=== PATIENT | male | born 1965 | race Caucasian/White ===

== ENCOUNTER 2016-11-28 18:03 | Inpatient (IN) | payer MEDICARE, OTHER ==
[~2016-11-28] VITALS: Ht 129.5 cm; Wt 38.1 kg
[2016-11-28 20:30] LABS: HEMOGLOBIN 8.3 gm/dl (14.0-17.5); RED BLOOD COUNT 2.87 M/UL (4.20-5.50); WHITE BLOOD COUNT 4.5 K/UL (4.5-11.0)
[2016-11-28 20:41] LABS: BUN/CREATININE RATIO 30 (0-10)
[2016-11-29] MEDS ORDERED: LOVASTATIN20 MG PO (05:58)
[2016-11-29] MEDS ORDERED: METOPROLOL TART25 MG PO (05:59)
[2016-11-29] MEDS ORDERED: MIRALAX17 GM PO (06:00)
[2016-11-29] MEDS ORDERED: MYCOSTATIN POWD15 GM TOP (06:06)
[2016-11-29] MEDS ORDERED: [UNRECOGNIZED DRUG - OTHER] TOP (06:06)
[2016-11-29] MEDS ORDERED: PHENERGAN25 MG PR (06:08)
[2016-11-29] MEDS ORDERED: RANITIDINE HCL150 MG PO (06:09)
[2016-11-29] MEDS ORDERED: SERTRALINE HCL25 MG PO (06:09)
[2016-11-29] MEDS ORDERED: FLOMAX 0.4 MG0.4 MG PO (06:09)
[2016-11-29] MEDS ORDERED: VITAMIN C 500500 MG PO (06:10)
[2016-11-29] MEDS ORDERED: BUSPAR 5MG TABLE5 MG PO (06:10)
[2016-11-29] MEDS ORDERED: CALCIUM 600 +1 EACH PO (06:11)
[2016-11-29] MEDS ORDERED: CALMOSEPTINE OI71 GM TOP (06:12)
[2016-11-29] MEDS ORDERED: CHLORHEXIDINE FL1 ML PO (06:13)
[2016-11-29] MEDS ORDERED: CLINDAGEL75 ML TOP (06:16)
[2016-11-29] MEDS ORDERED: CRANBERRY425 MG PO (06:16)
[2016-11-29] MEDS ORDERED: ENSURE LIQUID237 ML PO (06:18)
[2016-11-29] MEDS ORDERED: FINASTERIDE5 MG PO (06:19)
[2016-11-29] MEDS ORDERED: FEROSUL300 MG/6.8 PO (06:19)
[2016-11-29] MEDS ORDERED: NASALIDE INH SO25 ML (06:20)
[2016-11-29] MEDS ORDERED: IBUPROFEN600 MG PO (06:21)
[2016-11-29] MEDS ORDERED: NIZORAL 2% CREA15 GM TOP (06:21)
[2016-11-29] MEDS ORDERED: LACTULOSE10 GM/15 M PO (06:22)
[2016-11-29] MEDS ORDERED: LORATADINE10 MG PO (06:23)
[2016-11-29] MEDS ORDERED: SYNTHROID75 MCG PO (06:23)
[2016-11-29 06:56] LABS: BUN/CREATININE RATIO 33 (0-10)
[2016-11-30 07:55] LABS: BUN/CREATININE RATIO 20 (0-10)
[2016-11-30 08:00] LABS: HEMOGLOBIN 7.9 gm/dl (14.0-17.5); RED BLOOD COUNT 2.67 M/UL (4.20-5.50); WHITE BLOOD COUNT 5.2 K/UL (4.5-11.0)
[2016-11-30 18:20] LABS: HEMOGLOBIN 8.9 gm/dl (14.0-17.5)
[2016-12-01 06:07] LABS: HEMOGLOBIN 8.4 gm/dl (14.0-17.5); RED BLOOD COUNT 2.87 M/UL (4.20-5.50)
[2016-12-01 06:08] LABS: WHITE BLOOD COUNT 7.1 K/UL (4.5-11.0)
[2016-12-01] MEDS ORDERED: ENSURE ORIGINA237 ML PO (17:35)
[2016-12-01] MEDS ORDERED: CALCIUM + VITA1 EACH PO (17:36)
[2016-12-01] MEDS ORDERED: FLONASE 0.05% N16 GM (17:38)
[2016-12-01] MEDS ORDERED: PROTONIX40 MG PO (17:59)
== END 2016-12-01 18:09 | disposition home or self-care (01) | DRG 378 ==
LOC: ER1 18:03 → MED SURG 4 11-29 03:25 → ZEROF 11-29 03:25 → MED SURG 4 11-29 06:03
PROVIDERS: Family Medicine; Internal Medicine; Internal Medicine Gastroenterology; ADMIT Internal Medicine
PROC: 0DJ08ZZ Inspection of Upper Intestinal Tract, Via Natural or Artificial Opening Endoscopic (ICD-10-PCS; principal; 2016-11-30 17:00)
DX: K26.0 Acute duodenal ulcer with hemorrhage (principal); D62 Acute posthemorrhagic anemia; F72 Severe intellectual disabilities; K31.5 Obstruction of duodenum; G80.9 Cerebral palsy, unspecified; K44.9 Diaphragmatic hernia without obstruction or gangrene; L89.221 Pressure ulcer of left hip, stage 1; M24.50 Contracture, unspecified joint; I10 Essential (primary) hypertension; E03.9 Hypothyroidism, unspecified; E78.5 Hyperlipidemia, unspecified; N31.9 Neuromuscular dysfunction of bladder, unspecified; D64.9 Anemia, unspecified; K59.09 Other constipation; F41.9 Anxiety disorder, unspecified; Z99.3 Dependence on wheelchair; Z87.11 Personal history of peptic ulcer disease; Z79.1 Long term (current) use of non-steroidal anti-inflammatories (NSAID); Z79.899 Other long term (current) drug therapy
CPT/HCPCS: 36415; 80048; 80053; 82150; 82272; 83690; 85014; 85018; 85025; 85027; 85610; 86850; 86900; 86901; 99284; C9113; J2250; J7030; J7040; Q0162